=== PATIENT | male | born 1965 | race Caucasian/White ===

== ENCOUNTER 2016-07-24 16:37 | Emergency (ER) | payer OTHER ==
[~2016-07-24] VITALS: Wt 81.6 kg
[~2016-07-24 16:37] MED LIST: KEFLEX500 MG PO; NKHM; Zofran4 MG PO
[2016-07-24] MEDS ORDERED: KEFLEX500 M1 PO (17:07)
[2016-07-24] MEDS ORDERED: BACTRIM DS 8001 TA1 PO (17:07)
== END 2016-07-24 17:04 | disposition home or self-care (01) ==
LOC: ED 16:37
DX: L02.01 Cutaneous abscess of face (principal); R03.0 Elevated blood-pressure reading, without diagnosis of hypertension; F17.200 Nicotine dependence, unspecified, uncomplicated; Z90.49 Acquired absence of other specified parts of digestive tract

== ENCOUNTER 2017-02-12 08:20 | Emergency (ER) | payer OTHER ==
[~2017-02-12] VITALS: Ht 177.8 cm; Wt 77.1 kg
[~2017-02-12 08:20] MED LIST changes: +BACTRIM DS 8001 TA1 PO; +KEFLEX500 M1 PO
[2017-02-12] MEDS ORDERED: PREDNISONE50 MG PO (11:03)
== END 2017-02-12 11:32 | disposition home or self-care (01) ==
LOC: ED 08:20
DX: M47.22 Other spondylosis with radiculopathy, cervical region (principal); F17.200 Nicotine dependence, unspecified, uncomplicated; F10.10 Alcohol abuse, uncomplicated

== ENCOUNTER 2019-10-25 08:57 | Observation (INO) | payer OTHER ==
[~2019-10-25] VITALS: Ht 177 cm; Wt 60.9 kg
[~2019-10-25 08:57] MED LIST changes: +PREDNISONE50 MG PO
[2019-10-25 09:04] VITALS: BP 129/83
[2019-10-25 10:29] LABS: BASO # 0.1 10*3/uL (0.0-0.1); BASO % 0.7 % (0.0-1.0); EOS # 0.1 10*3/uL (0.0-0.4); HEMATOCRIT 44.1 % (42.0-52.0); LYMPH # 2.2 10*3/uL (1.3-4.4); LYMPH % 30.4 % (27.0-41.0); MEAN CELL VOLUME 89.8 fl (80.0-94.0); MEAN CORPUSCULAR HGB 30.3 pg (27.0-31.0); MEAN CORPUSCULAR HGB CONC 33.8 g/dl (33.0-37.0); MEAN PLATELET VOLUME 8.9 fl (9.6-12.3); MONO # 1.1 10*3/uL (0.1-1.0); MONO % 14.7 % (3.0-9.0); NEUT # 3.8 10*3/uL (2.3-7.9); NEUT % 52.9 % (47.0-73.0); PLATELET COUNT AUTOMATED 306 10*3/uL (130-400); RED BLOOD COUNT 4.91 10*6/uL (4.50-5.90); RED CELL DISTRI WIDTH 13.1 % (0-14.5); WHITE BLOOD COUNT 7.3 10*3/uL (4.8-10.8)
[2019-10-25 10:42] LABS: ACT PARTIAL THROMBO TIME 29.3 SECONDS (20.0-32.1); INTERNATIONAL NORM RATIO 0.9 (2.0-3.5)
[2019-10-25 10:45] LABS: ALBUMIN 3.8 gm/dl (3.1-4.5); ALKALINE PHOSPHATASE 103 U/L (45-117); BUN 16 mg/dl (7-24); CHLORIDE 103 mmol/L (98-107); CREATININE 0.75 mg/dL (0.70-1.30); LIPASE 172 U/L (73-393); POTASSIUM 3.6 mmol/L (3.5-5.1); SGOT/AST 23 IU/L (3-35); SGPT/ALT 23 U/L (12-78); SODIUM 138 mmol/L (136-145); TOTAL PROTEIN 7.6 gm/dL (6.4-8.2)
[2019-10-25 10:48] LABS: TROPONIN I < 0.015 ng/ml (<0.045)
[2019-10-25 10:55] LABS: BILIRUBIN 1+; CLARITY CLEAR (CLEAR); COLOR YELLOW (YELLOW); GLUCOSE NEGATIVE; KETONE TRACE
[2019-10-25 10:56] LABS: BLOOD NEGATIVE (NEGATIVE); LEUKO ESTERASE TRACE (NEGATIVE); NITRITE NEGATIVE (NEGATIVE); UROBILINOGEN 0.2 E.U./dl (0.0-1.0)
[2019-10-25 11:01] LABS: BACTERIA 1+; RBC 0-2 rbc/hpf (0-2)
[2019-10-25 11:02] LABS: MUCOUS 2+
[2019-10-25 13:19] VITALS: BP 161/69
[2019-10-25 15:00] VITALS: BP 132/83
[2019-10-25 20:00] VITALS: BP 111/71
[2019-10-26] VITALS: BP 133/84
[2019-10-26 06:42] LABS: BASO # 0.1 10*3/uL (0.0-0.1); EOS # 0.2 10*3/uL (0.0-0.4); EOS % 2.5 % (1.0-4.0); HEMATOCRIT 37.8 % (42.0-52.0); LYMPH % 32.4 % (27.0-41.0); MEAN CELL VOLUME 91.3 fl (80.0-94.0); MEAN CORPUSCULAR HGB 30.4 pg (27.0-31.0); MEAN CORPUSCULAR HGB CONC 33.3 g/dl (33.0-37.0); MEAN PLATELET VOLUME 9.1 fl (9.6-12.3); MONO % 15.8 % (3.0-9.0); NEUT # 2.9 10*3/uL (2.3-7.9); PLATELET COUNT AUTOMATED 259 10*3/uL (130-400); RED BLOOD COUNT 4.14 10*6/uL (4.50-5.90); RED CELL DISTRI WIDTH 12.9 % (0-14.5); WHITE BLOOD COUNT 6.1 10*3/uL (4.8-10.8)
[2019-10-26 06:54] LABS: BUN 9 mg/dl (7-24); CHLORIDE 108 mmol/L (98-107); CREATININE 0.69 mg/dL (0.70-1.30); POTASSIUM 3.8 mmol/L (3.5-5.1); SODIUM 140 mmol/L (136-145)
[2019-10-26 08:00] VITALS: BP 128/72
[2019-10-26 12:00] VITALS: BP 144/78
[2019-10-26] MEDS ORDERED: PROTONIX40 M1 IV (12:46)
== END 2019-10-26 15:00 | disposition home or self-care (01) ==
LOC: ED 08:57 → 5E 13:15 → EDHOLD 13:15 → 5E 13:40
PROVIDERS: Emergency Medicine; ADMIT Internal Medicine; ATTEND Internal Medicine
DX: R11.2 Nausea with vomiting, unspecified (principal); E86.0 Dehydration; R06.00 Dyspnea, unspecified; K29.70 Gastritis, unspecified, without bleeding

== ENCOUNTER 2020-05-20 12:00 | Emergency (ER) | payer OTHER ==
[~2020-05-20] VITALS: Ht 177.8 cm; Wt 68.0 kg
[~2020-05-20 12:00] MED LIST changes: +PROTONIX40 M1 IV
[2020-05-20 12:07] VITALS: BP 148/87
[2020-05-20 12:14] LABS: BASO # 0.1 10*3/uL (0.0-0.1); BASO % 0.7 % (0.0-1.0); EOS # 0.1 10*3/uL (0.0-0.4); EOS % 1.3 % (1.0-4.0); HEMATOCRIT 38.4 % (42.0-52.0); LYMPH # 2.2 10*3/uL (1.3-4.4); LYMPH % 22.6 % (27.0-41.0); MEAN CELL VOLUME 89.1 fl (80.0-94.0); MEAN CORPUSCULAR HGB 30.6 pg (27.0-31.0); MEAN CORPUSCULAR HGB CONC 34.4 g/dl (33.0-37.0); MEAN PLATELET VOLUME 8.7 fl (9.6-12.3); MONO # 0.9 10*3/uL (0.1-1.0); MONO % 9.8 % (3.0-9.0); NEUT # 6.3 10*3/uL (2.3-7.9); NEUT % 65.3 % (47.0-73.0); PLATELET COUNT AUTOMATED 301 10*3/uL (130-400); RED BLOOD COUNT 4.31 10*6/uL (4.50-5.90); RED CELL DISTRI WIDTH 13.2 % (0-14.5); WHITE BLOOD COUNT 9.6 10*3/uL (4.8-10.8)
[2020-05-20 12:25] LABS: ACT PARTIAL THROMBO TIME 26.1 SECONDS (20.0-32.1); INTERNATIONAL NORM RATIO 0.9 (2.0-3.5)
[2020-05-20 12:30] LABS: ALKALINE PHOSPHATASE 118 U/L (45-117); BUN 11 mg/dl (7-24); CHLORIDE 106 mmol/L (98-107); CREATININE 0.66 mg/dL (0.70-1.30); POTASSIUM 3.6 mmol/L (3.5-5.1); SGOT/AST 17 IU/L (3-35); SGPT/ALT 24 U/L (12-78); SODIUM 138 mmol/L (136-145); TOTAL PROTEIN 7.3 gm/dL (6.4-8.2)
[2020-05-20 12:43] LABS: TROPONIN I < 0.015 ng/ml (<0.045)
== END 2020-05-20 16:10 | disposition admitted as inpatient to this hospital (09) ==
LOC: ED 12:00 → EDHOLD 15:42 → ED 15:42
PROVIDERS: Emergency Medicine
DX: R07.9 Chest pain, unspecified (principal); Z79.899 Other long term (current) drug therapy; Z90.49 Acquired absence of other specified parts of digestive tract

== ENCOUNTER 2021-11-16 05:02 | Emergency (ER) | payer OTHER ==
[~2021-11-16] VITALS: Ht 177.8 cm; Wt 68.0 kg
[2021-11-16 06:41] LABS: BASO % 0.1 % (0.0-1.0); HEMATOCRIT 41.4 % (42.0-52.0); LYMPH % 8.6 % (27.0-41.0); MEAN CELL VOLUME 88.5 fl (80.0-94.0); MEAN CORPUSCULAR HGB 31.4 pg (27.0-31.0); MEAN CORPUSCULAR HGB CONC 35.5 g/dl (33.0-37.0); MEAN PLATELET VOLUME 9.3 fl (9.6-12.3); MONO # 1.3 10*3/uL (0.1-1.0); MONO % 11.1 % (3.0-9.0); NEUT # 9.1 10*3/uL (2.3-7.9); NEUT % 79.4 % (47.0-73.0); PLATELET COUNT AUTOMATED 250 10*3/uL (130-400); RED BLOOD COUNT 4.68 10*6/uL (4.50-5.90); RED CELL DISTRI WIDTH 13.3 % (0-14.5); WHITE BLOOD COUNT 11.5 10*3/uL (4.8-10.8)
[2021-11-16 07:04] LABS: ALKALINE PHOSPHATASE 109 U/L (45-117); BUN 16 mg/dl (7-24); CHLORIDE 99 mmol/L (98-107); CREATININE 0.74 mg/dL (0.70-1.30); LIPASE 242 U/L (73-393); POTASSIUM 3.2 mmol/L (3.5-5.1); SGOT/AST 18 IU/L (3-35); SGPT/ALT 17 U/L (12-78); SODIUM 134 mmol/L (136-145); TOTAL PROTEIN 6.9 gm/dL (6.4-8.2)
[2021-11-16 07:17] LABS: BILIRUBIN Negative (Negative); BLOOD Negative (Negative); CLARITY Clear (Clear); COLOR Yellow (Yellow); GLUCOSE Negative (Negative); KETONE 3+ (Negative); LEUKO ESTERASE Negative (Negative); NITRITE Negative (Negative)
[2021-11-16 07:38] LABS: RBC 0-2 rbc/hpf (0-2)
[2021-11-16 07:39] LABS: BACTERIA 2+; EPITHELIAL CELLS 0-2; MUCOUS 1+
== END 2021-11-16 09:01 | disposition home or self-care (01) ==
LOC: ED 05:02
PROVIDERS: Emergency Medicine
DX: U07.1 COVID-19 (principal); R11.10 Vomiting, unspecified; Z79.899 Other long term (current) drug therapy; Z90.49 Acquired absence of other specified parts of digestive tract

== ENCOUNTER 2021-11-18 07:22 | Inpatient (IN) | payer OTHER ==
[2021-11-18] VITALS (7 sets, daily range): BP systolic 132–178; BP diastolic 72–90
[~2021-11-18] VITALS: Ht 177.8 cm; Wt 65.5 kg
[2021-11-18 08:37] LABS: HEMATOCRIT 40.7 % (42.0-52.0); MANUAL DIFF REFLEX YES; MEAN CELL VOLUME 87.5 fl (80.0-94.0); MEAN CORPUSCULAR HGB CONC 35.4 g/dl (33.0-37.0); MEAN PLATELET VOLUME 9.2 fl (9.6-12.3); PLATELET COUNT AUTOMATED 235 10*3/uL (130-400); RED BLOOD COUNT 4.65 10*6/uL (4.50-5.90)
[2021-11-18 08:54] LABS: ALKALINE PHOSPHATASE 87 U/L (45-117); BUN 11 mg/dl (7-24); CHLORIDE 95 mmol/L (98-107); CPK 67 U/L (39-308); CREATININE 0.74 mg/dL (0.70-1.30); POTASSIUM 2.7 mmol/L (3.5-5.1); SGOT/AST 20 IU/L (3-35); SGPT/ALT 17 U/L (12-78); SODIUM 127 mmol/L (136-145); TOTAL PROTEIN 6.6 gm/dL (6.4-8.2)
[2021-11-18 08:58] LABS: BASOPHILS 1 % (0-1); BURR CELLS FEW; PLATELET SUFFICIENCY NORMAL (NORMAL); POLYCHROMASIA SLIGHT; TOTAL CELLS COUNTED 100 #CELLS
[2021-11-18 11:28] LABS: BUN 10 mg/dl (7-24); CHLORIDE 97 mmol/L (98-107); POTASSIUM 2.8 mmol/L (3.5-5.1); SODIUM 133 mmol/L (136-145)
[2021-11-19] VITALS: BP 150/93
[2021-11-19 06:03] LABS: BUN 9 mg/dl (7-24); CHLORIDE 98 mmol/L (98-107); CHOLESTEROL 180 mg/dL (<200); CREATININE 0.49 mg/dL (0.70-1.30); FREE T4 1.17 ng/dl (0.76-1.46); LDL CHOLESTEROL 117 mg/dL (9-159); SODIUM 131 mmol/L (136-145); TRIGLYCERIDES 153 mg/dl (<150)
[2021-11-19 06:22] LABS: HEMATOCRIT 39.4 % (42.0-52.0); MEAN CELL VOLUME 87.2 fl (80.0-94.0); MEAN CORPUSCULAR HGB CONC 35.5 g/dl (33.0-37.0); MEAN PLATELET VOLUME 9.7 fl (9.6-12.3); PLATELET COUNT AUTOMATED 227 10*3/uL (130-400); RED BLOOD COUNT 4.52 10*6/uL (4.50-5.90); RED CELL DISTRI WIDTH 12.8 % (0-14.5); WHITE BLOOD COUNT 6.7 10*3/uL (4.8-10.8)
[2021-11-19 06:25] LABS: MANUAL DIFF REFLEX YES
[2021-11-19 07:24] LABS: BASOPHILS 1 % (0-1); BURR CELLS FEW; PLATELET SUFFICIENCY NORMAL (NORMAL); POLYCHROMASIA SLIGHT; TOTAL CELLS COUNTED 100 #CELLS
[2021-11-19 08:00] VITALS: BP 155/88
[2021-11-19 08:37] LABS: VITAMIN D, 25-HYDROXY 34.6 ng/mL (30-100)
[2021-11-19 11:59] VITALS: BP 146/72
[2021-11-19 16:00] VITALS: BP 150/90
[2021-11-19 20:00] VITALS: BP 145/76
[2021-11-20 00:08] VITALS: BP 155/78
[2021-11-20 04:46] VITALS: BP 150/78
[2021-11-20 06:01] LABS: BUN 9 mg/dl (7-24); CHLORIDE 99 mmol/L (98-107); CREATININE 0.52 mg/dL (0.70-1.30); POTASSIUM 3.3 mmol/L (3.5-5.1); SODIUM 133 mmol/L (136-145)
[2021-11-20 06:08] LABS: HEMATOCRIT 40.9 % (42.0-52.0); MEAN CELL VOLUME 87.2 fl (80.0-94.0); MEAN CORPUSCULAR HGB 30.3 pg (27.0-31.0); MEAN CORPUSCULAR HGB CONC 34.7 g/dl (33.0-37.0); MEAN PLATELET VOLUME 9.6 fl (9.6-12.3); PLATELET COUNT AUTOMATED 239 10*3/uL (130-400); RED BLOOD COUNT 4.69 10*6/uL (4.50-5.90); RED CELL DISTRI WIDTH 12.8 % (0-14.5); WHITE BLOOD COUNT 5.9 10*3/uL (4.8-10.8)
[2021-11-20 06:10] LABS: MANUAL DIFF REFLEX YES
[2021-11-20 06:37] LABS: ATYPICAL LYMPHS 1 % (0-0); BASOPHILS 1 % (0-1); BURR CELLS FEW; PLATELET SUFFICIENCY NORMAL (NORMAL); POLYCHROMASIA SLIGHT; TOTAL CELLS COUNTED 100 #CELLS; TOXIC GRANULATION SLIGHT
[2021-11-20 08:00] VITALS: BP 174/86
[2021-11-20] MEDS ORDERED: IMODIUM A-D2 M2 PO (11:18)
[2021-11-20] MEDS ORDERED: CEPACOL SORE T1 EACH PO (11:18)
[2021-11-20] MEDS ORDERED: LISINOPRIL10 M1 PO (11:18)
[2021-11-20] MEDS ORDERED: ONDANSETRON HYDR4 M1 PO (11:18)
== END 2021-11-20 14:22 | disposition home or self-care (01) | DRG 871 ==
LOC: ED 07:22 → EDHOLD 09:30 → 4E 09:30 → EDHOLD 10:52 → 4E 12:23
PROVIDERS: Emergency Medicine; Internal Medicine; Student in an Organized Health Care Education/Training Program; ADMIT Internal Medicine; ATTEND Internal Medicine
DX: A41.89 Other specified sepsis (principal); U07.1 COVID-19; E87.1 Hypo-osmolality and hyponatremia; E87.6 Hypokalemia; J02.8 Acute pharyngitis due to other specified organisms; R73.9 Hyperglycemia, unspecified; R63.8 Other symptoms and signs concerning food and fluid intake; E87.8 Other disorders of electrolyte and fluid balance, not elsewhere classified; E83.41 Hypermagnesemia; R70.0 Elevated erythrocyte sedimentation rate; F17.210 Nicotine dependence, cigarettes, uncomplicated; E83.39 Other disorders of phosphorus metabolism; I10 Essential (primary) hypertension; R65.20 Severe sepsis without septic shock; M50.10 Cervical disc disorder with radiculopathy, unspecified cervical region; Z90.49 Acquired absence of other specified parts of digestive tract

== ENCOUNTER → 2022-07-22 | Outpatient (CLI) | payer OTHER ==
[~2022-07-22] MED LIST changes: +CEPACOL SORE T1 EACH PO; +IMODIUM A-D2 M2 PO; +LISINOPRIL10 M1 PO; +ONDANSETRON HYDR4 M1 PO
[2022-07-22 16:41] LABS: BUN 18 mg/dl (9-23)
== END | disposition home or self-care (01) ==
LOC: LAB 15:52
PROVIDERS: ATTEND Specialist
DX: H90.3 Sensorineural hearing loss, bilateral (principal)

== ENCOUNTER → 2022-08-11 | Outpatient (CLI) | payer OTHER | END | disposition home or self-care (01) | LOC: CT 07:34 | PROVIDERS: ATTEND Specialist | DX: H90.3 Sensorineural hearing loss, bilateral (principal) ==

== ENCOUNTER 2023-01-12 13:30 | Emergency (ER) | payer OTHER ==
[~2023-01-12] VITALS: Ht 177.8 cm; Wt 68.0 kg
[2023-01-12 14:03] LABS: BASO # 0.1 10*3/uL (0.0-0.1); BASO % 0.5 % (0.0-1.0); EOS % 0.3 % (1.0-4.0); HEMATOCRIT 42.4 % (42.0-52.0); LYMPH # 1.5 10*3/uL (1.3-4.4); LYMPH % 15.5 % (27.0-41.0); MEAN CELL VOLUME 89.5 fl (80.0-94.0); MEAN CORPUSCULAR HGB 31.9 pg (27.0-31.0); MEAN CORPUSCULAR HGB CONC 35.6 g/dl (33.0-37.0); MEAN PLATELET VOLUME 8.5 fl (9.6-12.3); MONO # 1.2 10*3/uL (0.1-1.0); MONO % 12.5 % (3.0-9.0); NEUT # 6.9 10*3/uL (2.3-7.9); NEUT % 70.8 % (47.0-73.0); PLATELET COUNT AUTOMATED 280 10*3/uL (130-400); RED BLOOD COUNT 4.74 10*6/uL (4.50-5.90); RED CELL DISTRI WIDTH 13.2 % (0-14.5); WHITE BLOOD COUNT 9.8 10*3/uL (4.8-10.8)
[2023-01-12 14:25] LABS: ALKALINE PHOSPHATASE 117 U/L (46-116); BUN 10 mg/dl (9-23); CHLORIDE 102 mmol/L (98-107); LIPASE 45 U/L (12-53); POTASSIUM 3.2 mmol/L (3.4-5.1); SGPT/ALT 38 U/L (5-49); TOTAL PROTEIN 7.5 gm/dL (6.0-8.0)
[2023-01-12 14:28] LABS: ACT PARTIAL THROMBO TIME 27.6 SECONDS (20.0-32.1)
[2023-01-12 15:52] LABS: BILIRUBIN Negative (Negative); BLOOD Negative (Negative); CLARITY Clear (Clear); COLOR Dark Yellow (Yellow); GLUCOSE Negative (Negative); KETONE Trace (Negative); LEUKO ESTERASE Negative (Negative); NITRITE Negative (Negative); PH 6.5 (4.5-8.0)
[2023-01-12 16:01] LABS: EPITHELIAL CELLS 0-2; MUCOUS TRACE
== END 2023-01-12 18:10 | disposition home or self-care (01) ==
LOC: ED 13:30
PROVIDERS: Emergency Medicine
DX: N50.812 Left testicular pain (principal); R11.2 Nausea with vomiting, unspecified; R10.32 Left lower quadrant pain; Z90.49 Acquired absence of other specified parts of digestive tract; Z98.890 Other specified postprocedural states; F17.200 Nicotine dependence, unspecified, uncomplicated; F12.90 Cannabis use, unspecified, uncomplicated

== ENCOUNTER 2023-01-17 08:11 | Emergency (ER) | payer OTHER ==
[~2023-01-17] VITALS: Ht 177.8 cm; Wt 65.8 kg
[2023-01-17 09:07] LABS: BASO # 0.1 10*3/uL (0.0-0.1); BASO % 0.9 % (0.0-1.0); EOS # 0.1 10*3/uL (0.0-0.4); EOS % 1.6 % (1.0-4.0); LYMPH # 1.4 10*3/uL (1.3-4.4); LYMPH % 19.4 % (27.0-41.0); MEAN CELL VOLUME 87.4 fl (80.0-94.0); MEAN CORPUSCULAR HGB 31.8 pg (27.0-31.0); MEAN CORPUSCULAR HGB CONC 36.3 g/dl (33.0-37.0); MEAN PLATELET VOLUME 8.7 fl (9.6-12.3); MONO # 1.2 10*3/uL (0.1-1.0); NEUT # 4.6 10*3/uL (2.3-7.9); NEUT % 61.8 % (47.0-73.0); PLATELET COUNT AUTOMATED 305 10*3/uL (130-400); RED BLOOD COUNT 4.69 10*6/uL (4.50-5.90); RED CELL DISTRI WIDTH 12.4 % (0-14.5); WHITE BLOOD COUNT 7.4 10*3/uL (4.8-10.8)
[2023-01-17 09:30] LABS: ALKALINE PHOSPHATASE 112 U/L (46-116); BUN 8 mg/dl (9-23); CHLORIDE 104 mmol/L (98-107); LIPASE 37 U/L (12-53); POTASSIUM 3.2 mmol/L (3.4-5.1); SGPT/ALT 30 U/L (5-49); TOTAL PROTEIN 7.4 gm/dL (6.0-8.0)
[2023-01-17 11:33] LABS: BILIRUBIN Negative (Negative); BLOOD Negative (Negative); CLARITY Clear (Clear); COLOR Yellow (Yellow); GLUCOSE Negative (Negative); KETONE Negative (Negative); LEUKO ESTERASE Negative (Negative); NITRITE Negative (Negative); SPECIFIC GRAVITY >= 1.030 (1.001-1.030); UROBILINOGEN 0.2 E.U./dl (0.0-1.0)
[2023-01-17 11:40] LABS: BACTERIA TRACE; EPITHELIAL CELLS 0-2; MUCOUS TRACE; RBC 0-2 rbc/hpf (0-2); WBC 0-2 wbc/hpf (0-5)
[2023-01-17] MEDS ORDERED: TRAMADOL HCL50 MG PO (12:06)
[2023-01-17] MEDS ORDERED: PEPCID20 MG PO (12:06)
[2023-01-17] MEDS ORDERED: REGLAN10 M1 PO (12:06)
== END 2023-01-17 14:22 | disposition home or self-care (01) ==
LOC: ED 08:11
PROVIDERS: Emergency Medicine
DX: R10.32 Left lower quadrant pain (principal); K29.70 Gastritis, unspecified, without bleeding; E87.6 Hypokalemia; R11.2 Nausea with vomiting, unspecified; Z90.49 Acquired absence of other specified parts of digestive tract; Z98.890 Other specified postprocedural states; F17.200 Nicotine dependence, unspecified, uncomplicated; F12.90 Cannabis use, unspecified, uncomplicated

== ENCOUNTER → 2023-05-15 | Outpatient (CLI) | payer OTHER ==
[~2023-05-15] MED LIST changes: +PEPCID20 MG PO; +REGLAN10 M1 PO; +TRAMADOL HCL50 MG PO
== END | disposition home or self-care (01) ==
LOC: LAB 07:14
PROVIDERS: ATTEND Internal Medicine Nephrology
DX: Z11.59 Encounter for screening for other viral diseases (principal); M19.011 Primary osteoarthritis, right shoulder

== ENCOUNTER 2023-05-26 11:51 | Emergency (ER) | payer OTHER ==
[~2023-05-26] VITALS: Ht 177.8 cm; Wt 68.0 kg
[2023-05-26] MEDS ORDERED: Ketorolac Tromethamine 30 MG/ML VIAL IV ONE (12:10)
[2023-05-26] MEDS ORDERED: Ondansetron Hydrochloride 4 MG/2 ML VIAL IV ONE (12:10)
[2023-05-26] MEDS ORDERED: SODIUM CHLORIDE 0.9% 1,000 ML IV ONE (12:10)
[2023-05-26] MEDS ORDERED: OMEPRAZOLE40 MG PO (12:17)
[2023-05-26] MEDS ORDERED: NOXIFOL-D32500 UNIT PO (12:17)
[2023-05-26] MEDS ORDERED: ALEVE220 M1 PO (12:18)
[2023-05-26 12:33] LABS: BASO # 0.1 10*3/uL (0.0-0.1); BASO % 0.7 % (0.0-1.0); EOS # 0.1 10*3/uL (0.0-0.4); EOS % 0.7 % (1.0-4.0); HEMATOCRIT 43.4 % (42.0-52.0); LYMPH # 1.5 10*3/uL (1.3-4.4); LYMPH % 21.9 % (27.0-41.0); MEAN CELL VOLUME 90.4 fl (80.0-94.0); MEAN CORPUSCULAR HGB 30.6 pg (27.0-31.0); MEAN CORPUSCULAR HGB CONC 33.9 g/dl (33.0-37.0); MONO # 0.6 10*3/uL (0.1-1.0); MONO % 8.9 % (3.0-9.0); NEUT # 4.7 10*3/uL (2.3-7.9); NEUT % 67.7 % (47.0-73.0); PLATELET COUNT AUTOMATED 284 10*3/uL (130-400); RED CELL DISTRI WIDTH 13.7 % (0-14.5)
[2023-05-26 12:49] LABS: BILIRUBIN Negative (Negative); BLOOD Negative (Negative); CLARITY Cloudy (Clear); COLOR Yellow (Yellow); GLUCOSE Negative (Negative); KETONE 2+ (Negative); LEUKO ESTERASE Negative (Negative); NITRITE Negative (Negative); SPECIFIC GRAVITY 1.025 (1.001-1.030); UROBILINOGEN 0.2 E.U./dl (0.0-1.0)
[2023-05-26 12:53] LABS: ALKALINE PHOSPHATASE 119 U/L (46-116); BUN 10 mg/dl (9-23); CHLORIDE 105 mmol/L (98-107); LIPASE 35 U/L (12-53); POTASSIUM 3.5 mmol/L (3.4-5.1); SGPT/ALT 34 U/L (5-49); TOTAL PROTEIN 7.5 gm/dL (6.0-8.0)
[2023-05-26 12:54] LABS: URINE AMPHETAMINES Negative (1000ng/ml); URINE BARBITURATES Negative (200ng/ml); URINE BENZODIAZEPINES Negative (200ng/ml); URINE CANNABINOIDS (THC) Positive (50ng/ml); URINE COCAINE Negative (300ng/ml); URINE METHADONE Negative (300ng/ml); URINE OPIATES Negative (300ng/ml); URINE PHENCYCLIDINE Negative (25ng/ml)
[2023-05-26 13:10] LABS: BACTERIA TRACE
[2023-05-26] MEDS ORDERED: NORVASC2.5 MG PO (13:59)
[2023-05-26] MEDS ORDERED: ONDANSETRON4 MG SL (13:59)
== END 2023-05-26 14:12 | disposition home or self-care (01) ==
LOC: ED 11:51
PROVIDERS: Physician Assistant Medical
DX: R10.31 Right lower quadrant pain (principal); I10 Essential (primary) hypertension; E78.5 Hyperlipidemia, unspecified; K21.9 Gastro-esophageal reflux disease without esophagitis; R11.2 Nausea with vomiting, unspecified; R19.7 Diarrhea, unspecified; Z90.49 Acquired absence of other specified parts of digestive tract; Z98.890 Other specified postprocedural states; F17.200 Nicotine dependence, unspecified, uncomplicated; F12.90 Cannabis use, unspecified, uncomplicated; Z79.899 Other long term (current) drug therapy

== ENCOUNTER 2023-05-29 03:07 | Emergency (ER) | payer OTHER ==
[~2023-05-29] VITALS: Ht 177.8 cm; Wt 68.0 kg
[~2023-05-29 03:07] MED LIST changes: +ALEVE220 M1 PO; +NORVASC2.5 MG PO; +NOXIFOL-D32500 UNIT PO; +OMEPRAZOLE40 MG PO; +ONDANSETRON4 MG SL
[2023-05-29] MEDS ORDERED: SODIUM CHLORIDE 0.9% 1,000 ML IV ONE (03:25)
[2023-05-29] MEDS ORDERED: diphenhydrAMINE hydrochloride 50 MG/ML VIAL IV ONE (03:25)
[2023-05-29] MEDS ORDERED: Metoclopramide Hydrochloride 10 MG/2 ML AMP IV ONE (03:25)
[2023-05-29 03:45] LABS: BASO # 0.1 10*3/uL (0.0-0.1); BASO % 0.5 % (0.0-1.0); EOS # 0.1 10*3/uL (0.0-0.4); EOS % 1.2 % (1.0-4.0); HEMATOCRIT 45.5 % (42.0-52.0); LYMPH # 1.7 10*3/uL (1.3-4.4); LYMPH % 17.3 % (27.0-41.0); MEAN CELL VOLUME 89.2 fl (80.0-94.0); MEAN CORPUSCULAR HGB 30.2 pg (27.0-31.0); MEAN CORPUSCULAR HGB CONC 33.8 g/dl (33.0-37.0); MEAN PLATELET VOLUME 8.9 fl (9.6-12.3); MONO # 1.1 10*3/uL (0.1-1.0); MONO % 11.3 % (3.0-9.0); NEUT # 6.9 10*3/uL (2.3-7.9); NEUT % 69.5 % (47.0-73.0); PLATELET COUNT AUTOMATED 285 10*3/uL (130-400); RED CELL DISTRI WIDTH 13.1 % (0-14.5); WHITE BLOOD COUNT 9.9 10*3/uL (4.8-10.8)
[2023-05-29 04:10] LABS: BILIRUBIN 1+ (Negative); BLOOD Negative (Negative); CLARITY Clear (Clear); COLOR Dark Yellow (Yellow); GLUCOSE Negative (Negative); KETONE 1+ (Negative); LEUKO ESTERASE Trace (Negative); NITRITE Negative (Negative); PH 6.5 (4.5-8.0); SPECIFIC GRAVITY 1.025 (1.001-1.030)
[2023-05-29 04:15] LABS: BACTERIA 1+; CALCIUM OXALATE CRYSTALS 1+; FINE GRANULAR CAST 0-2; MUCOUS 2+; RBC 0-2 rbc/hpf (0-2)
[2023-05-29 04:17] LABS: URINE AMPHETAMINES Negative (1000ng/ml); URINE BARBITURATES Negative (200ng/ml); URINE BENZODIAZEPINES Negative (200ng/ml); URINE CANNABINOIDS (THC) Positive (50ng/ml); URINE COCAINE Negative (300ng/ml); URINE METHADONE Negative (300ng/ml); URINE OPIATES Negative (300ng/ml); URINE PHENCYCLIDINE Negative (25ng/ml)
[2023-05-29 04:19] LABS: ALKALINE PHOSPHATASE 117 U/L (46-116); BUN 14 mg/dl (9-23); CHLORIDE 102 mmol/L (98-107); ETHYL ALCOHOL 5.3 mg/dl (<3); LIPASE 41 U/L (12-53); POTASSIUM 3.2 mmol/L (3.4-5.1); SGPT/ALT 36 U/L (5-49); TOTAL PROTEIN 7.3 gm/dL (6.0-8.0)
[2023-05-29] MEDS ORDERED: REGLAN10 M1 PO (06:00)
== END 2023-05-29 06:11 | disposition home or self-care (01) ==
LOC: ED 03:07
PROVIDERS: Internal Medicine
DX: R11.2 Nausea with vomiting, unspecified (principal); Z20.822 Contact with and (suspected) exposure to COVID-19; R19.7 Diarrhea, unspecified; I10 Essential (primary) hypertension; F17.200 Nicotine dependence, unspecified, uncomplicated; Z79.899 Other long term (current) drug therapy; Z90.49 Acquired absence of other specified parts of digestive tract; Z98.890 Other specified postprocedural states

== ENCOUNTER 2024-03-01 07:00 | Emergency (ER) | payer OTHER ==
[~2024-03-01] VITALS: Ht 177.8 cm; Wt 62.6 kg
[2024-03-01] MEDS ORDERED: Ondansetron Hydrochloride 4 MG TAB SL ONE (07:25)
[2024-03-01] MEDS ORDERED: ACETAMINOPHEN 500 MG TAB PO ONE (07:25)
[2024-03-01 07:45] LABS: BASO % 0.7 % (0.0-1.0); EOS # 0.1 10*3/uL (0.0-0.4); EOS % 2.2 % (1.0-4.0); HEMATOCRIT 43.3 % (42.0-52.0); MEAN CORPUSCULAR HGB 31.2 pg (27.0-31.0); MEAN CORPUSCULAR HGB CONC 34.6 g/dl (33.0-37.0); MEAN PLATELET VOLUME 8.9 fl (9.6-12.3); MONO # 1.2 10*3/uL (0.1-1.0); MONO % 19.6 % (3.0-9.0); NEUT # 3.5 10*3/uL (2.3-7.9); NEUT % 57.2 % (47.0-73.0); PLATELET COUNT AUTOMATED 249 10*3/uL (130-400); RED BLOOD COUNT 4.81 10*6/uL (4.50-5.90); RED CELL DISTRI WIDTH 12.6 % (0-14.5)
[2024-03-01 08:07] LABS: BUN 10 mg/dl (9-23); CHLORIDE 104 mmol/L (98-107); POTASSIUM 3.3 mmol/L (3.4-5.1)
[2024-03-01] MEDS ORDERED: POTASSIUM CHLORIDE 20 MEQ TAB PO ONE (08:50)
== END 2024-03-01 09:26 | disposition home or self-care (01) ==
LOC: ED 07:00
PROVIDERS: Internal Medicine
DX: B34.9 Viral infection, unspecified (principal); Z20.822 Contact with and (suspected) exposure to COVID-19; F17.200 Nicotine dependence, unspecified, uncomplicated; F12.90 Cannabis use, unspecified, uncomplicated; Z90.49 Acquired absence of other specified parts of digestive tract; Z98.890 Other specified postprocedural states